=== PATIENT | female | born 1950 | race Caucasian/White ===

== ENCOUNTER 2019-04-05 15:14 | Inpatient (IN) | payer OTHER ==
[~2019-04-05] VITALS: Ht 162.6 cm; Wt 72.2 kg
[2019-04-05] MEDS ORDERED: TYLENOL325 MG PO (21:38)
[2019-04-05] MEDS ORDERED: BISMATROL262 MG/15 PO (21:39)
[2019-04-05] MEDS ORDERED: BUSPIRONE HCL10 MG PO (21:41)
[2019-04-05] MEDS ORDERED: DEPAKOTE 250MG250 M1 PO (21:42)
[2019-04-05] MEDS ORDERED: DEPAKOTE500 MG PO (21:42)
[2019-04-05] MEDS ORDERED: ATIVAN0.5 MG PO (21:43)
[2019-04-05] MEDS ORDERED: PROTONIX40 M2 PO (21:44)
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
[2019-04-05 22:34] VITALS: BP 154/61
[2019-04-06 08:01] VITALS: BP 124/77
--- NOTE | 2019-04-06 09:22 | NUR ---
0715: Report rec from [facility] shift, care assumed. [id number]: Ambulatory without assistance in room, halls and to DR, gait steady. Oriented to name and place, chooses not to discuss reason for admission. Feeds self, appetite fair, takes Depakote po w/o difficulty, Valp. Acid level 11. DOCK HAND Aboud here to see pt, no new orders. Attending 0900 therapy group, 100% participation observed. No SI indactions noted.
[2019-04-06 19:21] VITALS: BP 108/58
[2019-04-06 23:23] VITALS: BP 108/58
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
--- NOTE | 2019-04-07 03:06 | NUR ---
PATIENT HAS BEEN SLEEPING IN BED SINCE I CAME ON THE FLOOR AT 1900. SHE DID WAKE TO TAKE MEDS. SHE DID NOT AWAKE I DID ASSESSMENT ON HER TONIGHT. SHE IS CALM AND SLEEPING AT THIS TIME. WE CONTINUE TO ENCOURAGE HYDRATION WITH WATER AND LIMITING HER COFFEE INTAKE DAILY. BED IN LOW POSITION AND BED ALARM ON. WALKS WITH WALKER TO BATHROOM WITH ASSIST. WILL CONTINUE TO MONITOR.
[2019-04-07 07:24] VITALS: BP 109/69
--- NOTE | 2019-04-07 10:56 | NUR ---
KAVYA met with the treatment team on today in it was discuss that the Director of case management recieved a call concerning [facility] concerning [facility]. SW mention that she will [facility]olloe-up with the [facility] to clarify if pt will be allowed back.
--- NOTE | 2019-04-07 15:34 | NUR ---
Assumed pt care this am, VS stable, pt is able to ambulate with a steady gait and mo assistive devices. Pt seemed always concerned about the others in the dining area and would offer them help when needed and informed the nurse when asked by others. Pt refused to talk about by why was admitted but has stressed on several occasion that she needs to go to court to get a guardian to take care of her. Pt mentioned that her son is her dpoa and would like to change this to her brother being the dpoa. Advised the pt she will need to discuss this with the care management assistant to facilitate this request. POC followed
[2019-04-07 19:05] VITALS: BP 95/59
[2019-04-07 19:07] VITALS: BP 95/59
[2019-04-07 23:45] VITALS: BP 95/59
--- NOTE | 2019-04-08 03:57 | NUR ---
PT IN ROOM AT [facility] OF [facility]IFT. FRIENDLY AND COOPERATIVE WITH STAFF, BUT REMAINED IN ROOM. TOOK HS MEDS PRESCRIBED, BUT REFUSED EVENING SNACK. SLEPT WELL THROUGH THE NIGHT W/O INCIDENT.
[2019-04-08 06:50] VITALS: BP 105/55
--- NOTE | 2019-04-08 15:11 | NUR ---
Assumed pt care this am, pt has been calm and kept to herself for most of the day. Stayed in the dining area for a good amount of time joined the group activities. POC followed
[2019-04-08 20:14] VITALS: BP 135/70
--- NOTE | 2019-04-09 02:29 | NUR ---
ASSUMED CARE FROM DAY SHIFT PT RESTING IN BED , NO CONCERNS VOICED HAVE COVER OVER HED, TALK TO PT, WITH LITTLE RESPONSE. PO MEDICATION TAKEN WITHOUT PROBLEMS, RESTING WELL THROUGHOUT HOURLY ROUNDS. PT SLEEPING QUIETLY WILL CONITNUE MONITOR AND REPORT CHANGES OR ABNORMAL FINDINGS.
[2019-04-09 09:02] VITALS: BP 100/66
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
--- NOTE | 2019-04-09 11:43 | NUR ---
CALM. TAKES ALL MEDICATIONS. NO C/O. OUT TO COMMON AREA FOR MEALS AND GROUP. FREQUENT CHECKS; WILL CONTINUE TO MONITOR.
--- NOTE | 2019-04-09 11:48 | NUR ---
CALM, COOPERATIVE. SLIGHTLY PARANOID. AMBULATES WITH WALKER, GAIT STEADY. OUT TO COMMON AREA FOR MEALS, GROUP. APPETITE BRISK. WILL CONTINUE TO MONITOR.
[2019-04-09 19:36] VITALS: BP 117/75
--- NOTE | 2019-04-09 21:47 | NUR ---
PT QUIET SITTING IN DAY ROOM NEXT TO PEERS. PT COMPLIANT WITH HS MEDS, REQUESTED PUDDING FOR HS SNACK. STEADY GAIT, GOOD EYE CONTACT, BLUNTED AFFECT, RESTLESS AMBULATION IN AND OUT OF ROOM AND DAY ROOM. MINIMAL VERBALIZATIONS WITH PT UNLESS ASKED DIRECT QUESTIONS.
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
[2019-04-10 08:42] VITALS: BP 118/78
[2019-04-10 10:32] VITALS: BP 118/78
[2019-04-10 19:07] VITALS: BP 157/137
--- NOTE | 2019-04-10 21:08 | NUR ---
PT RESTING IN BED UPON ARRIVAL TO SHIFT. PT SLEEPING WITH COVERS OVER HER HEAD. PT COMPLIANT WITH HS MEDS, DECLINED SNACK. PT HAS POOR EYE CONTACT, FLAT AFFECT. STEADY GAIT WHEN AMBULATING BUT INITIALLY A FAST START TO WALKING. INDEP WITH SUPERVISION WITH ADL CARES.
[2019-04-11 08:06] VITALS: BP 133/87
--- NOTE | 2019-04-11 09:28 | NUR ---
0700: Report rec from noc shift, care assumed. [id number]: Ambulatory indepedently in room and to DR, gait steady, oriented to name and place. Wearing hospital scrubs and gown, toilets self with assist PRN. Pleasant mood, cooperative with staff, takes meds whole w/o difficulty, feeds self, appetite good. Attending 0900 exercise group, 100% participation noted.
[2019-04-11 19:42] VITALS: BP 122/70
--- NOTE | 2019-04-12 00:26 | NUR ---
Care assumed of patient at 1915: Patient sleeping in bed at start of shift. Patient calm, pleasant and cooperative with assessment. Patient alert and oriented x4. Denies SI/HI/AH/VH. No s/s of delusional or paranoia behaviors. Declined HS snack. Took HS medication whole without difficulty. Denies pain or discomfort. Patient continent of bladder this shift. Patient did isolate self to her room. Patient received dose of Haldol 10mg at bedtime. No involuntary movements observed at this time. No aggression, anxiety or agitation observed at this time. Patient resting quietly in bed at this time.
--- NOTE | 2019-04-12 13:24 | EKG ---
[address] [address] ELECTROCARDIOGRAM REPORT Name: SIDDHARTH FLYNN [facility] [id number] Admission: 04/05/19 Attend Phys: Imer Kulkarni DO Discharge: Date of : 52 Report #: [id number] THIS REPORT FOR: //name// [facility] Test Date: 2019-04-12 Test Time: 11:32:47 Pat Name: SIDDHARTH FLYNN Department: Room: 520[facility] Gender: F Virtualization Architect: VAUGHN : 1950 Requested By: Imer Kulkarni Order Number: [id number] MD: Chris Mcclure Measurements Intervals [place] Rate: 62 P: 80 VT: 155 QRS: 47 QRSD: 63 T: 57 QT: 590 QTc: 600 Interpretive Statements Sinus rhythm Nonspecific repol abnormality, diffuse leads No previous ECG available for comparison Electronically Signed On 04-12-2019 13:24:42 CDT by Chris Mcclure [email or web address] <ELECTRONICALLY SIGNED> By: Chris Mcclure MD 04/12/19 1324 1132 113 Chris Mcclure MD /URIAH
[2019-04-12 13:36] LABS: CALCIUM 8.9 mg/dL (8.5-10.1); CREATININE 0.9 mg/dL (0.6-1.0); POTASSIUM 3.8 mmol/L (3.5-5.1)
--- NOTE | 2019-04-12 15:19 | NUR ---
0700: Report rec from noc shift, care assumed. [id number]: Ambulatory independently in room, to BR and to DR. Oriented to name and place, mood is flat, calm, cooperative with staff. Does ADL's independently with staff assist PRN. Feeds self, appetite fair, takes meds whole w/o difficulty. Attends 0900 therapy group, minimal participation noted, isolates self from others.
--- NOTE | 2019-04-12 15:51 | NUR ---
Date of Admission: 04/05/19 Date of Activity Therapy Assessment: 04/08/19 Activity Goal: Increase mood stabilizing coping skills and self esteem Initial Goal: 1 Group activity/day Weekly progress towards goal: Achieving current goals Group participation level: Full Behaviors observed: Patient is consistent in attendance of 1-2 groups daily. Pt exhibits appropriate boundaries and social interactions. Plan: 2 groups per day
[2019-04-12 19:51] VITALS: BP 107/62
--- NOTE | 2019-04-13 04:03 | NUR ---
The pt. was in bed resting at shift start last evening. She had no thoughts of harming herself. She had a flat affect during assessment, had no c.o. pain, and was H.S.medication compliant. VSS. She slept well tonite, ambulates ad-fredrick with no difficulty to the restroom. Aknowledged understanding of fall precaution measures.
[2019-04-13 09:26] VITALS: BP 105/71
--- NOTE | 2019-04-13 12:23 | NUR ---
Up ambulating in halls and attending group. Cooperative and compliant. Flat affect. Answers questions appropriately. No s/o distress. States she took shower mid morning. Wet linens at door.
--- NOTE | 2019-04-13 13:04 | NUR ---
Patient will be discharged tomorrow back to [facility] "[facility]" address is [address] [place] [id number] . [facility] administrator is Danay Zheng. She has been contacted and will be expecting Maggie. [employer] will be here at 1000 to transport pt. in a cab. Dr. Kulkarni to write letter to [facility] addressing any questions regarding concerns.
[2019-04-13 20:16] VITALS: BP 112/66
--- NOTE | 2019-04-14 02:35 | NUR ---
THIS NURSE ASSUMED CARE OF APTIENT AT APPROXIMATELY 1915. PT IS OBSERVED IN BED WITH EYES CLOSED AT TIME OF ASSESSMENT BUT EASILY AROUSABLE TO THIS NURSES VOICE. SHE WAS SHORT WITH CONVERSATION AND APPEARED DISHEVELED. SHE HAD A FLAT AFFECT. SHE WAS MED COMPLIANT. SHE ABRUPTLY ENDED CONVERSATION BY ROLLING OVER IN HER BED. SHE DID NOT REPORT AND MEDICAL PROBLEMS, NOR DID SHE APPEAR TO BE IN DISTRESS. NURSING WILL MAINTAIN ALL PRECAUTIONS TO ENSURE SAFETY.
--- NOTE | 2019-04-14 07:32 | NUR ---
Nurse manager oracle and psychiatrist had a family conference call with 2 nephews. Discussed placement and guardianship in the future, nephews made aware that pt is discharging back to [facility] tomorrow. Nephews expressed understanding.
[2019-04-14 08:25] VITALS: BP 118/76
--- NOTE | 2019-04-14 08:55 | NUR ---
0700: Report rec from noc shift, care assumed. 0800: Ambulatory independently to , gait steady, oriented to name and place, aware of discharge today to [facility] in [place], [place]. Feeds self, appetite good, takes meds whole w/o difficutly. Isolates self away from others, declines to attend 0900 therapy group, resting in bed on Rt side at this time.
[2019-04-14] MEDS ORDERED: DEPAKOTE500 MG PO ×2 (08:57)
[2019-04-14] MEDS ORDERED: HALOPERIDOL 5 MG5 MG PO (08:58)
--- NOTE | 2019-04-14 14:30 | EKG ---
[address] [place] [address] ELECTROCARDIOGRAM REPORT Name: SIDDHARTH FLYNN Room #: [facility] DIS IN ..#: [id number] Admission: 04/05/19 Attend Phys: Imer Kulkarni DO Discharge: 04/14/19 Date of : 52 Report #: [id number] THIS REPORT FOR: //name// [facility] Test Date: 2019-04-13 Test Time: 10:00:09 Pat Name: SIDDHARTH FLYNN Department: Room: [facility] Gender: F Spray Stainer: VAUGHN : 1950 Requested By: Imer Kulkarni Order Number: [id number] MD: Desmond Beauchamp Measurements Intervals [place] Rate: 64 P: 72 IA: 152 QRS: 47 QRSD: 66 T: QT: 515 QTc: 532 Interpretive Statements Sinus rhythm Nonspecific ST segment abnormalities Prolonged QT interval Compared to ECG 04/12/2019 11:32:47 Prolonged QT interval now present Electronically Signed On 04-14-2019 14:29:44 CDT by Desmond Beauchamp [email or web address] <ELECTRONICALLY SIGNED> By: Desmond Beauchamp MD 04/14/19 1429 1000 Beau Beauchamp MD /URIAH
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
== END 2019-04-14 10:15 | DRG 885 ==
LOC: SBH
PROVIDERS: Hospitalist; ADMIT Psychiatry & Neurology Psychiatry
DX: F25.9 Schizoaffective disorder, unspecified (principal); R45.851 Suicidal ideations; T65.892A Toxic effect of other specified substances, intentional self-harm, initial encounter; F29 Unspecified psychosis not due to a substance or known physiological condition; F31.9 Bipolar disorder, unspecified; F43.10 Post-traumatic stress disorder, unspecified; F01.50 Vascular dementia, unspecified severity, without behavioral disturbance, psychotic disturbance, mood disturbance, and anxiety; Z88.0 Allergy status to penicillin; Z87.891 Personal history of nicotine dependence; Z90.721 Acquired absence of ovaries, unilateral
CPT/HCPCS: 10880